=== PATIENT | male | born 1960 | race Caucasian/White ===

== ENCOUNTER 2025-03-27 22:11 | Observation (INO) ==
[2025-03-27 22:54] LABS: Hematocrit (blood only) 39.1 % (42.0-52.0); Hemoglobin 13.5 g/dl (14.0-18.0); Immature Granulocytes # (auto) 0.03 K/uL (0.01-0.20); Immature Granulocytes % (auto) 0.3 %; Mean Corpuscular Hemoglobin 29.9 pg (25.0-34.0); Mean Corpuscular Volume 86.7 fL (80.0-100.0); Platelet Count 229 K/uL (130-400); RDW Standard Deviation 40.6 fL (36.4-46.3); Red Blood Count 4.51 M/uL (4.70-6.10); White Blood Count 9.71 K/ul (4.8-10.8)
--- NOTE | 2025-03-27 22:55 | Emergency Department Note ---
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 The patient had apparently become severely weak and laid himself to the ground and denies any falls. She was able to help him to his feet and they sat in his car for a bit to warm up but due to his ongoing illness EMS was called. Patient denies any cough or congestion. He denies urinary symptoms. 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 He only began to feel ill towards the end of the day. On evaluation the patient is no acute distress, hypothermic to 35.3 on rectal temperature. Otherwise vital signs are stable. The patient appears clinically dry. Given the patient's significant hypothermia evaluation for sepsis initiated. Blood cultures were obtained. Empiric treatment initiated with IV ceftriaxone. 30 cc/KG per IBW with 3 L of normal saline administered. Warming blanket applied and IV fluid hydration administered via warmer for hypokalemia. Core temperature gradually improving. EKG without overt acute ischemia. CXR with increased density of the left lung base per my personal preliminary review/interpretation. WBC and platelets within normal limits. H/H 13.5/39.1 similar to prior. Chemistry without metabolic acidosis. Lactic acid 2.0, within normal limits. LFTs unremarkable. High-sensitivity troponin 4.2, within normal limits. Lipase is normal. Procalcitonin is undetectable. TSH within normal limits. UA with 2+ ketones but no convincing evidence of infection. Respiratory [employer] ultimately did result positive for enterovirus/rhinovirus. CT of the head, CTA chest and CT abdomen pelvis were obtained with reports pending. [facility] the patient for [facility]. Further management per admitting team. Triage Nursing notes reviewed and agree them. Prior/external medical records reviewed Vital Signs: reviewed Differential diagnosis: Infection, dehydration, metabolic abnormality, hypo/hyperglycemia, electrolyte disturbance, anemia, hypoxia, cardiac sources, intracerebral event, toxicologic, neurologic, as well as other pathologies. ER treatment provided: See below. Diagnostics interpreted by me: ECG: Sinus bradycardia, 58 bpm, no ectopy, LVH, no overt ST elevation or depression, QTc 431, QRS 104. Cardiac Monitoring: An order for continuous cardiac monitoring was placed and demonstrated sinus bradycardia, 58 bpm, no ectopy. Laboratory studies: See below Imaging studies: See below Consultation(s): Case was [facility] the patient for admission. HPI: Per MDM. ROS: See above HPI for pertinent positives & negatives. A total of 10 systems reviewed and were otherwise negative. VITALS:See Below PHYSICAL EXAMINATION: GENERAL: Awake, alert, ill-appearing, in no distress HENT: Normocephalic, atraumatic. Oropharynx with dry mucous membranes and otherwise unremarkable. EYES: Normal conjunctiva. Sclera non-icteric. EOMI. No nystamgus. PEARRL. NECK: Supple. No nuchal rigidity. FROM. No JVD. RESPIRATORY: Clear to auscultation. CARDIAC: Regular rate, normal rhythm. Extremities warm and well perfused. Pulses equal. ABDOMEN: Soft, non-distended. No tenderness to palpation. No rebound or guarding. No masses. MUSCULOSKELETAL: Chest examination reveals no tenderness. The back is symmetrical on inspection without obvious abnormality. There is no CVA tenderness to palpation. No joint edema. LOWER EXTREMITIES: Calves are equal size bilaterally and non-tender. No edema. No discoloration. NEURO: Cranial nerves II-XII grossly intact. 5/5 strength and SILT x 4 extremities. SKIN: No rash or jaundice noted. ED COURSE: Critical Care: I have personally spent greater than 35 minutes of critical care time in the direct management of this patient. This includes bedside care, interpretation of diagnostic studies, and testing, discussion with consultants, patient, and family members, and other required patient management activities. This 35 minutes is in excess of all separately billable procedures. Matthew Anthony MD Past Med/Surg History Problem List (Updated 03/28/25 @ 05:36 by Matthew Anthony MD) Generalized weakness (Acute) Dehydration (Acute) Rhinovirus infection (Acute) Hypothermia (Acute) Acid reflux Nausea Dysphagia Cervical spondylosis Cervical radicular pain Cervical pain Medical History On apixaban therapy Occlusion of radial artery Family History Denies family history of Crohn's disease Colorectal cancer Ulcerative colitis Social History Smoking Status: Never smoker Hx Alcohol Use: Yes Hx Substance Use: No Preferred Language: Italian Communication Ability: Effective Hearing Ability: Normal Cooker Syrup Required: No Beliefs That Will Affect Care: None Current Living Situation: Alone Other Information That Helps Us Care for You: No Feels Safe at Home: Yes Safety Concerns: Feels Safe At This Time Assistive Devices: Glasses and Hearing Aid - Bilateral Allergies Allergies Allergy/AdvReac Type Severity Reaction Status Date / Time codeine Allergy Severe Unknown Verified 03/28/25 02:55 Home Meds Home Medications Medication Instructions Recorded Confirmed acetaminophen 325 mg tablet 325 mg PO DAILY PRN Pain 12/26/24 03/28/25 omega-3 fatty acids 1,000 mg 2,000 mg PO DAILY 12/26/24 03/28/25 capsule dextroamphetamine-amphetamine 20 20 mg PO BID PRN as needed 01/09/25 03/28/25 mg tablet semaglutide (weight loss) 1.7 1.7 mg subcut Q7D 03/28/25 03/28/25 mg/0.75 mL subcutaneous pen injector (Wegovy) Results & Data (ED) Vital Signs Vital Signs - 24 hr 03/27/25 22:19 03/27/25 22:19 03/27/25 22:19 Temperature 35.3 C L Temperature Source Rectal Pulse Rate 58 L 58 L Pulse Rate [Apical] 58 L Pulse Rate from SpO2 Sensor Respiratory Rate 16 16 16 Respiratory Effort / Characteristics Non-Labored Spontaneous Non-Labored Spontaneous Blood Pressure 136/76 Blood Pressure Mean 96 Pulse Oximetry 98 98 98 Oxygen Delivery Method Room Air Room Air Room Air Sepsis Recent Fever Within 48 Hours No Sepsis New/Unexplained Change in Mental Status No Sepsis Action Taken by Nursing No Action Required 03/27/25 22:19 03/27/25 22:55 03/27/25 23:00 Temperature 35.3 C L Temperature Source Rectal Pulse Rate Pulse Rate [Apical] Pulse Rate from SpO2 Sensor Respiratory Rate Respiratory Effort / Characteristics Blood Pressure Blood Pressure Mean Pulse Oximetry 98 98 Oxygen Delivery Method Room Air Room Air Sepsis Recent Fever Within 48 Hours Sepsis New/Unexplained Change in Mental Status Sepsis Action Taken by Nursing 03/27/25 23:27 03/27/25 23:45 03/27/25 23:48 Temperature Temperature Source Pulse Rate 60 59 L 55 L Pulse Rate [Apical] Pulse Rate from SpO2 Sensor 60 57 L Respiratory Rate 13 Respiratory Effort / Characteristics Blood Pressure Blood Pressure Mean Pulse Oximetry 95 100 Oxygen Delivery Method Room Air Room Air Sepsis Recent Fever Within 48 Hours Sepsis New/Unexplained Change in Mental Status Sepsis Action Taken by Nursing 03/28/25 00:14 03/28/25 00:21 03/28/25 00:30 Temperature 35.6 C L Temperature Source Rectal Pulse Rate 61 59 L Pulse Rate [Apical] Pulse Rate from SpO2 Sensor 61 59 L Respiratory Rate 16 16 Respiratory Effort / Characteristics Blood Pressure 121/65 Blood Pressure Mean 83 Pulse Oximetry 96 100 Oxygen Delivery Method Room Air Room Air Sepsis Recent Fever Within 48 Hours Sepsis New/Unexplained Change in Mental Status Sepsis Action Taken by Nursing 03/28/25 00:47 03/28/25 01:33 03/28/25 01:50 Temperature 35.3 C L 35.9 C L Temperature Source Rectal Rectal Pulse Rate 63 Pulse Rate [Apical] Pulse Rate from SpO2 Sensor 63 Respiratory Rate 21 Respiratory Effort / Characteristics Blood Pressure 126/56 L Blood Pressure Mean 79 Pulse Oximetry 97 Oxygen Delivery Method Room Air Sepsis Recent Fever Within 48 Hours Sepsis New/Unexplained Change in Mental Status Sepsis Action Taken by Nursing 03/28/25 02:00 Temperature Temperature Source Pulse Rate 72 Pulse Rate [Apical] Pulse Rate from SpO2 Sensor 71 Respiratory Rate 19 Respiratory Effort / Characteristics Blood Pressure 122/62 Blood Pressure Mean 82 Pulse Oximetry 96 Oxygen Delivery Method Room Air Sepsis Recent Fever Within 48 Hours Sepsis New/Unexplained Change in Mental Status Sepsis Action Taken by Nursing Laboratory Data Attestation: I reviewed the patient's lab results. 03/27/25 22:18 10/20/25 22:18 Lab Results 03/27/25 03/27/25 03/27/25 Range/Units 22:18 23:21 23:39 WBC 9.71 (4.8-10.8) K/ul RBC 4.51 L (4.70-6.10) M/uL Hgb 13.5 L (14.0-18.0) g/dl Hct 39.1 L (42.0-52.0) % MCV 86.7 (80.0-100.0) fL MCH 29.9 (25.0-34.0) pg MCHC 34.5 (32.0-36.0) g/dL RDW Std Deviation 40.6 (36.4-46.3) fL RDW Coeff of Reginald 12.9 (11.5-14.5) % Plt Count 229 (130-400) K/uL MPV 10.6 (9.4-12.4) fL Immature Gran % (Auto) 0.3 % Neut % (Auto) 78.0 % Lymph % (Auto) 15.2 % Mckinley % (Auto) 6.0 % Eos % (Auto) 0.3 % Baso % (Auto) 0.2 % Neut # (Auto) 7.57 H (1.40-6.50) K/uL Lymph # (Auto) 1.48 (1.20-3.40) K/uL Mckinley # (Auto) 0.58 (0.11-0.59) K/uL Eos # (Auto) 0.03 (0.00-0.50) K/uL Baso # (Auto) 0.02 (0.00-0.20) K/uL Immature Gran # (Auto) 0.03 (0.01-0.20) K/uL Sodium 134 L (136-145) mmol/L Potassium 3.6 (3.5-5.1) mmol/L Chloride 99 (98-107) mmol/L Carbon Dioxide 26 (21-32) mmol/L Anion Gap 9 (3-11) BUN 16 (6-23) mg/dl Creatinine 1.05 (0.6-1.4) mg/dl Est Cr Clr Drug Dosing 96.2 ml/min eGFR 79.27 BUN/Creatinine Ratio 15.2 (10-20) Glucose 128 H (70-99(Fasting)) mg/dl Lactate (0.4-2.0) mmol/L Calcium 9.0 (8.6-10.3) mg/dl Magnesium 2.1 (1.7-2.4) mg/dl Total Bilirubin 0.6 (0.2-1.0) mg/dl Direct Bilirubin TNP AST 32 (13-39) U/L ALT 25 (7-52) U/L Alkaline Phosphatase 59 (34-104) U/L Troponin I High Sens 4.2 (0-20) pg/ml Total Protein 7.4 (6.0-8.3) gm/dl Albumin 4.0 (3.4-5.0) gm/dl Lipase 17 (11-82) U/L Procalcitonin < 0.02 (0-0.5) ng/ml TSH (0.300-4.500) uIu/ml Random Cortisol mcg/dl Urine Color Urine Appearance (Clear) Urine pH (4.5-7.5) Ur Specific Wheatcroft (1.000-1.030) Urine Protein (Negative) Urine Glucose (UA) (Negative) Urine Ketones (Negative) Urine Blood (Negative) Urine Nitrite (Negative) Urine Bilirubin (Negative) Urine Urobilinogen (Negative) Ur Leukocyte Esterase (Negative) Urine Comment Nasal Screen MRSA (PCR) Negative (Negative) Adenovirus (PCR) Not Detected (NotDetected) B. pertussis DNA (PCR) Not Detected (NotDetected) B.parapertussis DNA PCR Not Detected (NotDetected) Lyme Disease Screen Negative (Negative) C. pneumoniae DNA (PCR) Not Detected (NotDetected) Coronavirus OC43 (PCR) Not Detected (NotDetected) Coronavirus HKU1 (PCR) Not Detected (NotDetected) Coronavirus 229E (PCR) Not Detected (NotDetected) SARS-CoV-2 (PCR) Not Detected (NotDetected) Coronavirus NL63 (PCR) Not Detected (NotDetected) Human Metapneumovir PCR Not Detected (NotDetected) Influenza Type A (PCR) Not Detected (NotDetected) Influenza Type B (PCR) Not Detected (NotDetected) M. pneumoniae (PCR) Not Detected (NotDetected) Parainfluenza 1 (PCR) Not Detected (NotDetected) Parainfluenza 2 (PCR) Not Detected (NotDetected) Parainfluenza 3 (PCR) Not Detected (NotDetected) Parainfluenza 4 (PCR) Not Detected (NotDetected) RSV (PCR) Not Detected (NotDetected) Entero/Rhino (PCR) DETECTED A (NotDetected) 03/27/25 03/28/25 Range/Units 23:41 00:08 WBC (4.8-10.8) K/ul RBC (4.70-6.10) M/uL Hgb (14.0-18.0) g/dl Hct (42.0-52.0) % MCV (80.0-100.0) fL MCH (25.0-34.0) pg MCHC (32.0-36.0) g/dL RDW Std Deviation (36.4-46.3) fL RDW Coeff of Reginald (11.5-14.5) % Plt Count (130-400) K/uL MPV (9.4-12.4) fL Immature Gran % (Auto) % Neut % (Auto) % Lymph % (Auto) % Mckinley % (Auto) % Eos % (Auto) % Baso % (Auto) % Neut # (Auto) (1.40-6.50) K/uL Lymph # (Auto) (1.20-3.40) K/uL Mckinley # (Auto) (0.11-0.59) K/uL Eos # (Auto) (0.00-0.50) K/uL Baso # (Auto) (0.00-0.20) K/uL Immature Gran # (Auto) (0.01-0.20) K/uL Sodium (136-145) mmol/L Potassium (3.5-5.1) mmol/L Chloride (98-107) mmol/L Carbon Dioxide (21-32) mmol/L Anion Gap (3-11) BUN (6-23) mg/dl Creatinine (0.6-1.4) mg/dl Est Cr Clr Drug Dosing ml/min eGFR BUN/Creatinine Ratio (10-20) Glucose (70-99(Fasting)) mg/dl Lactate 2.0 (0.4-2.0) mmol/L Calcium (8.6-10.3) mg/dl Magnesium (1.7-2.4) mg/dl Total Bilirubin (0.2-1.0) mg/dl Direct Bilirubin 0.1 AST (13-39) U/L ALT (7-52) U/L Alkaline Phosphatase (34-104) U/L Troponin I High Sens (0-20) pg/ml Total Protein (6.0-8.3) gm/dl Albumin (3.4-5.0) gm/dl Lipase (11-82) U/L Procalcitonin (0-0.5) ng/ml TSH 2.868 (0.300-4.500) uIu/ml Random Cortisol 23.17 mcg/dl Urine Color Yellow Urine Appearance Clear (Clear) Urine pH 7.0 (4.5-7.5) Ur Specific Wheatcroft 1.020 (1.000-1.030) Urine Protein Negative (Negative) Urine Glucose (UA) Negative (Negative) Urine Ketones 2+ H (Negative) Urine Blood Negative (Negative) Urine Nitrite Negative (Negative) Urine Bilirubin Negative (Negative) Urine Urobilinogen Negative (Negative) Ur Leukocyte Esterase Negative (Negative) Urine Comment Nasal Screen MRSA (PCR) (Negative) Adenovirus (PCR) (NotDetected) B. pertussis DNA (PCR) (NotDetected) B.parapertussis DNA PCR (NotDetected) Lyme Disease Screen (Negative) C. pneumoniae DNA (PCR) (NotDetected) Coronavirus OC43 (PCR) (NotDetected) Coronavirus HKU1 (PCR) (NotDetected) Coronavirus 229E (PCR) (NotDetected) SARS-CoV-2 (PCR) (NotDetected) Coronavirus NL63 (PCR) (NotDetected) Human Metapneumovir PCR (NotDetected) Influenza Type A (PCR) (NotDetected) Influenza Type B (PCR) (NotDetected) M. pneumoniae (PCR) (NotDetected) Parainfluenza 1 (PCR) (NotDetected) Parainfluenza 2 (PCR) (NotDetected) Parainfluenza 3 (PCR) (NotDetected) Parainfluenza 4 (PCR) (NotDetected) RSV (PCR) (NotDetected) Entero/Rhino (PCR) (NotDetected) Administered Medications Potassium Chloride/Sodium Chloride (Normal Saline W/20 Meq Kcl) 20 meq in 1,000 mls @ 100 mls/hr IV .Q10H ONE Stop: 03/28/25 12:46 Last Admin: 03/28/25 03:43 Dose: 100 mls/hr Documented By: LEONA Discontinued Medications Ceftriaxone Sodium (Rocephin) 2,000 mg in 50 mls @ 100 mls/hr IV NOW STA Stop: 03/27/25 23:02 Last Infusion: 03/28/25 01:47 Dose: Infused Documented By: Admin: 03/28/25 00:24 Dose: 100 mls/hr Documented By: TERRIE Famotidine (Pepcid 20mg Iv Push) 20 mg in 5 mls @ 2.5 mls/min IV NOW STA Stop: 03/27/25 22:57 Last Admin: 03/27/25 23:25 Dose: 2.5 mls/min Documented By: TERRIE Acetaminophen (Ofirmev) 1,000 mg in 100 mls @ 400 mls/hr IV NOW STA Stop: 03/27/25 23:10 Last Infusion: 03/28/25 00:05 Dose: Infused Documented By: Admin: 03/27/25 23:28 Dose: 400 mls/hr Documented By: TERRIE Sodium Chloride (Nss) 1,000 mls @ 999 mls/hr IV .Q1H1M ARTEMIO Stop: 03/28/25 01:00 Last Infusion: 03/28/25 01:47 Dose: Infused Documented By: Admin: 03/28/25 00:25 Dose: 999 mls/hr Documented By: Infusion: 03/28/25 00:23 Dose: Infused Documented By: Admin: 03/27/25 23:21 Dose: 999 mls/hr Documented By: TERRIE Sodium Chloride (Nss) 1,000 mls @ 999 mls/hr IV .Q1H1M ONE Stop: 03/27/25 23:57 Last Infusion: 03/28/25 00:23 Dose: Infused Documented By: Admin: 03/27/25 23:21 Dose: 999 mls/hr Documented By: TERRIE Ioversol (Optiray 320 125ml) 118 ml IV ONCE ONE Stop: 03/28/25 01:09 Last Admin: 03/28/25 01:11 Dose: 118 ml Documented By: DANIEL Ondansetron HCl (Ondansetron Inj 2 Mg/Ml 2 Ml Vial) 4 mg IV NOW STA Stop: 03/27/25 22:57 Last Admin: 03/27/25 23:22 Dose: 4 mg Documented By: TERRIE Imaging Data Radiologist's Impression: Chest X-Ray 03/27/25 22:31 Exam(s): XR CXR 1 VIEW EXAM: XR Chest, 1 View CLINICAL HISTORY: Reason for exam: Sepsis. TECHNIQUE: Frontal view of the chest. COMPARISON: 10/23/2024 FINDINGS: Lungs: Compared to prior, increased density of the left lung base. Right lung is clear. Pleural space: No significant pleural effusion. No pneumothorax. Heart: No cardiomegaly or pulmonary vascular congestion. Bones/joints: No acute fracture. No dislocation. IMPRESSION: Compared to prior, increased density of the left lung base. Appearance is favored atelectasis, but infiltrate is not excluded. Electronically signed by: Tony River M.D. 03/27/25 23:35 PM Abdomen/Pelvis CT 03/27/25 22:54 EXAM: CT abd pelvis IV con only CLINICAL HISTORY: nausea, hypothermic TECHNIQUE: Contrast-enhanced CT of the abdomen and pelvis was performed, with the following protocol: axial images were obtained, and coronal and sagittal reconstructions were performed. 118 mL of Optiray 320 Intravenous contrast was administered. One of the following dose reduction techniques was utilized for this exam: automated exposure control, adjustment of the mA and/or kV according to patient size, and use of iterative reconstruction. COMPARISON: None. FINDINGS: Abdomen: Liver: The liver is normal in size, shape, and density. No focal lesions, cysts, or masses are identified. The hepatic vasculature and biliary ducts are unremarkable. Gallbladder and Biliary System: The gallbladder is normal in size and shape. No wall thickening, pericholecystic fluid, or gallstones are identified. The common bile duct is normal in caliber without dilation. Pancreas: The pancreatic head, body, and tail are visualized and appear normal in size and density. No pancreatic masses or calcifications are noted. The pancreatic duct is not dilated. Spleen: The spleen is normal in size, shape, and density. No splenic lesions or masses are identified. Appendix: The appendix is normal in size without simón-appendiceal fat stranding, and without an appendicolith. No evidence of appendiceal abscess or perforation. Kidneys and Adrenal Glands: Both kidneys are normal in size, shape, and position. Cortical thickness is within normal limits. No sizable renal calculi or hydronephrosis are identified. A 4mm cortical cyst in the interpolar region of right kidney. The adrenal glands are unremarkable, with no evidence of masses or hyperplasia. Pelvis: Urinary Bladder: The urinary bladder is normal in contour and wall thickness. No intraluminal lesions are identified. Prostate: The prostate is enlarged (93 cc). Seminal Vesicles: The seminal vesicles are normal in size and appearance. No abnormalities are noted. Peritoneal and Retroperitoneal Structures: No free fluid or abnormal fluid collections are identified within the abdomen or pelvis. No lymphadenopathy is noted. Mild atheromatous calcification of the examined vessels is present. Bowel: Mild diverticulosis of the colon is present. The visualized bowel loops are normal in caliber and appearance. No evidence of bowel obstruction or wall thickening is seen. Bones and Soft Tissues: Bilateral hip osteoarthritis is present. Spondylodegenerative changes of the lumbosacral spine are noted. No fractures or abnormal masses are identified. Proximal hamstring calcific tendinosis is present bilaterally. Basal chest cuts show mild dependent atelectasis. IMPRESSION: 1. Contrast-enhanced CT of the abdomen and pelvis demonstrates no acute intra-abdominal pathology. 2. Prostatomegaly. Electronically signed by Moses Mack 03-28-2025 02:29 AM Chest CTA 03/27/25 22:54 EXAM: CT angio chest PE protocol CLINICAL HISTORY: Chest pain, nausea, hypothermic, r/o PE TECHNIQUE: CT angiography of the chest was performed with and without intravenous contrast using the following protocol: Axial images were acquired and reconstructed to coronal and sagittal images. Non-contrast images were initially obtained, followed by contrast-enhanced images in arterial and venous phases. Intravenous contrast [name and volume] was administered using automated injection techniques. Bolus tracking was employed to optimize arterial phase imaging. One of the following 3D techniques was utilized: Maximum Intensity Pixel (MIP), 3D reconstructed images, volume rendered images, or surface shaded rendering. One of the following dose reduction techniques was utilized for this exam: automated exposure control, adjustment of the mA and/or kV according to patient size, and use of iterative reconstruction. COMPARISON: Comparison is made with 12/26/2024. FINDINGS: Aorta and Great Vessels: Ascending aorta: The ascending aorta is normal in caliber, with no aneurysm, dissection, or significant atherosclerosis. Aortic arch: The aortic arch is normal in caliber, with no aneurysm, dissection, or significant atherosclerosis. Descending aorta: The descending aorta is normal in caliber, with no aneurysm, dissection, or significant atherosclerosis. Pulmonary arteries: The main pulmonary artery and its branches are patent. There is no evidence of pulmonary embolism or significant stenosis. Heart: Cardiac chambers: The cardiac chambers are normal in size. There is no evidence of cardiomegaly. Pericardium: There is no pericardial effusion or thickening. Lungs and Pleura: The lungs are clear, without evidence of consolidation, collapse, or focal lesions. There is interval resolution of the prior diffuse ground-glass attenuation of the lung gil, now localized to the basal lungs only, which may currently represent the effect of gravity and circulation. There is no pleural effusion or pleural thickening. Mediastinum: There is no mediastinal mass or abnormal lymphadenopathy. The trachea and central bronchi have a normal appearance. Hilar Structures: The hilar structures are normal, without enlargement. Old, calcified left hilar lymph nodes are seen and are interval stable. A few calcified lymph nodes are noted in the subcarinal region and are interval stable. Chest Wall: There are no mass lesions or abnormalities in the chest wall. Vascular Structures: Superior vena cava: The superior vena cava is patent without evidence of stenosis or thrombus. Bones and Soft Tissues: Degenerative changes are seen in the spine. There are no fractures, lytic, or blastic lesions of the visualized bony structures. The soft tissues are unremarkable. The stomach is distended with food and fluid residual. An old splenic calcified granuloma is redemonstrated and is interval stable. IMPRESSION: 1. Normal CT angiogram of the chest shows no evidence of any acute or chronic thromboembolic phenomenon in the pulmonary vasculature. 2. No arterial dissection or aneurysms are noted. 3. The stomach is distended with food and fluid residual. 4. Interval resolution of the prior diffuse ground-glass attenuation of the lung gil, now localized to the basal lungs only, which may currently represent the effect of gravity and circulation. 5. Clinical correlation is advised. Electronically signed by Moses Mack 03-28-2025 02:[address] 03/27/25 22:54 EXAM: CT head/brain wo con CLINICAL HISTORY: dizziness, hypothermic, nausea TECHNIQUE: Axial non-contrast CT scan of the brain was performed from the skull base to the high parietal region. One of the following dose reduction techniques was utilized for this examination: automated exposure control, adjustment of the mA and/or kV according to patient size, or use of iterative reconstruction. COMPARISON: 10/27/2022 FINDINGS: Brain Parenchyma: Normal attenuation of the cerebral hemispheres, cerebellum, and brainstem. There is no evidence of acute infarct, hemorrhage, or mass effect. There are no abnormal areas of hypoattenuation or hyperattenuation. Ventricular System: The ventricles are normal in size and configuration. There is no evidence of hydrocephalus or ventricular enlargement. Subarachnoid Spaces: The sulci and cisterns are normal. There is no evidence of subarachnoid hemorrhage or extra-axial fluid collections. Cerebellum and Brainstem: No masses, lesions, or areas of abnormal density are identified. Orbits: The globes, optic nerves, and extraocular muscles demonstrate normal appearance. There is no evidence of orbital masses or abnormal density. Sinuses: The paranasal sinuses are clear. There is no evidence of sinusitis or mucosal thickening. Mastoid Air Cells: The mastoid air cells are clear. There is no evidence of mastoiditis. Skull: The skull demonstrates normal morphology. IMPRESSION: There is no evidence of established infarction, intracranial or extracranial hemorrhage. Early changes of stroke may not be detected on a CT scan. If there is strong clinical suspicion for stroke, MRI with diffusion-weighted imaging is suggested. There are no significant interval changes from the previous study. Electronically signed by Moses Mack 03-28-2025 02:37 AM Discharge Plan Visit Data Chief Complaint: Weakness Stated Complaint: WEAKNESS, CHEST PAIN, SOB ED Provider: Matthew Anthony Discharge Problem: Hypothermia, Rhinovirus infection, Dehydration, Generalized weakness Patient Disposition: Admitted As Inpatient Condition: Serious Discharge Instructions Interventions: ED Discharge Assessment Last Done: 03/28/25 02:49 Discharge Problem: Hypothermia Qualifiers: Encounter type: initial encounter Qualified Code(s): T68.XXXA - Hypothermia, initial encounter
[2025-03-27] MEDS: SODIUM CHLORIDE 0.9% 1,000 ML IV ONE (23:21)
[2025-03-27] MEDS: SODIUM CHLORIDE 0.9% 1,000 ML IV SCH (23:21)
[2025-03-27] MEDS: ONDANSETRON INJ 2 MG/ML 2 ML VIAL IV STA (23:22)
[2025-03-27] MEDS: FAMOTIDINE 20MG IV PUSH 20 MG/5 ML SYR IV STA (23:25)
[2025-03-27] MEDS: ACETAMINOPHEN 1,000 MG/100 ML VIAL IV STA (23:28)
[2025-03-27 23:34] LABS: Alanine Aminotransferase 25 U/L (7-52); Albumin Level 4.0 gm/dl (3.4-5.0); Alkaline Phosphatase 59 U/L (34-104); Anion Gap 9 (3-11); Bilirubin,Total 0.6 mg/dl (0.2-1.0); Blood Urea Nitrogen 16 mg/dl (6-23); Calcium 9.0 mg/dl (8.6-10.3); Carbon Dioxide 26 mmol/L (21-32); Chloride 99 mmol/L (98-107); Creatinine Clr Calc Pharmacy 96.2 ml/min; Glucose 128 mg/dl (70-99(Fasting)); Lipase 17 U/L (11-82); Magnesium 2.1 mg/dl (1.7-2.4); Potassium 3.6 mmol/L (3.5-5.1); Sodium 134 mmol/L (136-145); Total Protein 7.4 gm/dl (6.0-8.3)
--- NOTE | 2025-03-27 23:36 | XRay Report ---
Exam(s): XR CXR 1 VIEW EXAM: XR Chest, 1 View CLINICAL HISTORY: Reason for exam: Sepsis. TECHNIQUE: Frontal view of the chest. COMPARISON: 10/23/2024 FINDINGS: Lungs: Compared to prior, increased density of the left lung base. Right lung is clear. Pleural space: No significant pleural effusion. No pneumothorax. Heart: No cardiomegaly or pulmonary vascular congestion. Bones/joints: No acute fracture. No dislocation. IMPRESSION: Compared to prior, increased density of the left lung base. Appearance is favored atelectasis, but infiltrate is not excluded. Electronically signed by: Tony River M.D. 03/27/25 23:35 PM
[2025-03-28 00:12] LABS: Appearance Urine Clear (Clear); Glucose Urine UA Negative (Negative)
[2025-03-28] MEDS: cefTRIAXone SODIUM 2,000 MG/50 ML BAG IV STA (00:24)
[2025-03-28 00:36] LABS: Chlamydia pneumoniae PCR Not Detected (NotDetected); Coronavirus 229E PCR Not Detected (NotDetected); Coronavirus CoV-2 (COVID19)PCR Not Detected (NotDetected); Coronavirus HKU1 PCR Not Detected (NotDetected); Coronavirus NL63 PCR Not Detected (NotDetected); Coronavirus OC43PCR Not Detected (NotDetected); Human Metapneumovirus PCR Not Detected (NotDetected); Parainfluenza Virus 1 PCR Not Detected (NotDetected); Parainfluenza Virus 2 PCR Not Detected (NotDetected); Parainfluenza Virus 3 PCR Not Detected (NotDetected); Parainfluenza Virus 4 PCR Not Detected (NotDetected); Respiratory Syncytial VirusPCR Not Detected (NotDetected); Rhinovirus/Enterovirus PCR DETECTED (NotDetected)
[2025-03-28] MEDS: OPTIRAY 320 125ml IV ONE (01:11)
[2025-03-28 01:31] LABS: Thyroid Stimulating Hormone 2.868 uIu/ml (0.300-4.500)
--- NOTE | 2025-03-28 02:11 | History & Physical Report ---
Date of Service March 28, 2025 Assessment & Plan (1) SOB (shortness of breath): Plan: Assessment and plan below following discussion of case with ED provider and reviewing patient history/pertinent normal/abnormal diagnostic test results. SOB secondary to viral bronchitis Entero/rhinovirus positive Hypothermia secondary to viral illness Chronic anemia, hx MGUS, hemoglobin at baseline ADHD, on as needed medication mood disorder, not on maintenance medications Hyperglycemia rule out DM past tobacco abuse OBS Admit to med/tele Supportive management for viral illness Continue Valente hugger until temperature greater than 36 C Check hemoglobin A1c PT eval DVT prophylaxis. Lovenox subcu Full code Text document was generated using orderbolt voice recognition software. It may contain grammatical or spelling errors. Kindly contact undersigned for clarification of any documentation item in question. History of Present Illness Chief Complaint: SOB, weakness Primary Care Provider: [facility] PCP : PRASANNA Alvarez PCP : Dr. Mayorga History obtained from patient and records. Medical history significant for chronic anemia (baseline hemoglobin of 13), MGUS, ADHD, mood disorder, past tobacco abuse. Patient felt sick after a day of work yesterday. Cough symptoms productive of clear sputum. 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 Transient chest pain, SOB associated with nausea, emesis, dizziness symptoms. Generalized weakness. No syncope. Patient markedly hypothermic upon arrival at the ER. Medical History as above Surgical History : Back surgery Family History : Lung cancer, heart disease, stroke Personal/Social history : Past tobacco abuse, occasional EtOH intake, chiropractor Allergies Allergy/AdvReac Type Severity Reaction Status Date / Time codeine Allergy Severe Unknown Verified 03/28/25 02:55 Home Medications Medication Instructions Recorded Confirmed Type acetaminophen 325 mg tablet 325 mg PO DAILY PRN Pain 12/26/24 03/28/25 History omega-3 fatty acids 1,000 mg 2,000 mg PO DAILY 12/26/24 03/28/25 History capsule dextroamphetamine-amphetamine 20 20 mg PO BID PRN as needed 01/09/25 03/28/25 History mg tablet semaglutide (weight loss) 1.7 1.7 mg subcut Q7D 03/28/25 03/28/25 History mg/0.75 mL subcutaneous pen injector (Carol) Past Med/Surg History Problem List (Updated 03/28/25 @ 08:09 by Renny Kellogg MD) SOB (shortness of breath) Generalized weakness (Acute) Dehydration (Acute) Rhinovirus infection (Acute) Hypothermia (Acute) Acid reflux Nausea Dysphagia Cervical spondylosis Cervical radicular pain Cervical pain Medical History On apixaban therapy Occlusion of radial artery Family History Denies family history of Crohn's disease Colorectal cancer Ulcerative colitis Social History Smoking Status: Never smoker Hx Alcohol Use: Yes Hx Substance Use: No Preferred Language: Romansh Communication Ability: Effective Hearing Ability: Normal Kindergarten Assistant Required: No Beliefs That Will Affect Care: None Current Living Situation: Alone Other Information That Helps Us Care for You: No Feels Safe at Home: Yes Safety Concerns: Feels Safe At This Time Assistive Devices: Glasses and Hearing Aid - Bilateral Review of Systems Review of Systems: As per HPI, all other systems reviewed and negative Physical Exam Physical Exam: GENERAL: Comfortable, obese, pleasant, no respiratory distress, lying on the left lateral decubitus position SKIN: Normal color, cool HEENT: [place] palpebral conjunctivae, no ptosis, dry buccal mucosa NECK : Supple, no tenderness CHEST : Decreased breath sounds, no tenderness HEART : RRR, no obvious murmurs ABDOMEN: Some distention, nontender EXTREMITIES : No LE swelling/tenderness, palpable pulses, no other conspicuous deformities noted NEUROLOGIC : Coherent, no facial asymmetry, gait and stance not assessed Results & Data Results & Data Vital Signs (Past 12 Hours) Vital Signs Temp Pulse Pulse Resp BP Pulse Ox O2 Del Method 03/28/25 01:50 35.9 C L 03/28/25 01:33 63 21 126/56 L 97 Room Air 03/28/25 00:47 35.3 C L 03/28/25 00:30 59 L 16 121/65 100 Room Air 03/28/25 00:21 61 16 96 Room Air 03/28/25 00:14 35.6 C L 03/27/25 23:48 55 L 100 Room Air 03/27/25 23:45 59 L 03/27/25 23:27 60 13 95 Room Air 03/27/25 23:00 35.3 C L 03/27/25 22:55 98 Room Air 03/27/25 22:19 98 Room Air 03/27/25 22:19 58 L 16 98 Room Air 03/27/25 22:19 58 L 16 98 Room Air 03/27/25 22:19 35.3 C L 58 L 16 136/76 98 Room Air Laboratory Results Laboratory Results WBC 9.71 K/ul (4.8-10.8) 03/27/25 22:18 RBC 4.51 M/uL (4.70-6.10) L 03/27/25 22:18 Hgb 13.5 g/dl (14.0-18.0) L 03/27/25 22:18 Hct 39.1 % (42.0-52.0) L 03/27/25 22:18 MCV 86.7 fL (80.0-100.0) 03/27/25 22:18 MCH 29.9 pg (25.0-34.0) 03/27/25 22:18 MCHC 34.5 g/dL (32.0-36.0) 03/27/25 22:18 RDW Std Deviation 40.6 fL (36.4-46.3) 03/27/25 22:18 RDW Coeff of Reginald 12.9 % (11.5-14.5) 03/27/25 22:18 Plt Count 229 K/uL (130-400) 03/27/25 22:18 MPV 10.6 fL (9.4-12.4) 03/27/25 22:18 Immature Gran % (Auto) 0.3 % 03/27/25 22:18 Neut % (Auto) 78.0 % 03/27/25 22:18 Lymph % (Auto) 15.2 % 03/27/25 22:18 [place] % (Auto) 6.0 % 03/27/25 22:18 Eos % (Auto) 0.3 % 03/27/25 22:18 Baso % (Auto) 0.2 % 03/27/25 22:18 Neut # (Auto) 7.57 K/uL (1.40-6.50) H 03/27/25 22:18 Lymph # (Auto) 1.48 K/uL (1.20-3.40) 03/27/25 22:18 [place] # (Auto) 0.58 K/uL (0.11-0.59) 03/27/25 22:18 Eos # (Auto) 0.03 K/uL (0.00-0.50) 03/27/25 22:18 Baso # (Auto) 0.02 K/uL (0.00-0.20) 03/27/25 22:18 Immature Gran # (Auto) 0.03 K/uL (0.01-0.20) 03/27/25 22:18 Sodium 134 mmol/L (136-145) L 03/27/25 22:18 Potassium 3.6 mmol/L (3.5-5.1) 03/27/25 22:18 Chloride 99 mmol/L (98-107) 03/27/25 22:18 Carbon Dioxide 26 mmol/L (21-32) 03/27/25 22:18 Anion Gap 9 (3-11) 03/27/25 22:18 BUN 16 mg/dl (6-23) 03/27/25 22:18 Creatinine 1.05 mg/dl (0.6-1.4) 03/27/25 22:18 Est Cr Clr Drug Dosing 96.2 ml/min 03/27/25 22:18 eGFR 79.27 03/27/25 22:18 BUN/Creatinine Ratio 15.2 (10-20) 03/27/25 22:18 Glucose 128 mg/dl (70-99(Fasting)) H 03/27/25 22:18 Lactate 2.0 mmol/L (0.4-2.0) 03/28/25 00:08 Calcium 9.0 mg/dl (8.6-10.3) 03/27/25 22:18 Magnesium 2.1 mg/dl (1.7-2.4) 03/27/25 22:18 Total Bilirubin 0.6 mg/dl (0.2-1.0) 03/27/25 22:18 Direct Bilirubin 0.1 mg/dl (0-0.2) 03/28/25 00:08 AST 32 U/L (13-39) 03/27/25 22:18 ALT 25 U/L (7-52) 03/27/25 22:18 Alkaline Phosphatase 59 U/L (34-104) 03/27/25 22:18 Troponin I High Sens 4.2 pg/ml (0-20) 03/27/25 22:18 Total Protein 7.4 gm/dl (6.0-8.3) 03/27/25 22:18 Albumin 4.0 gm/dl (3.4-5.0) 03/27/25 22:18 Lipase 17 U/L (11-82) 03/27/25 22:18 Procalcitonin < 0.02 ng/ml (0-0.5) 03/27/25 22:18 TSH 2.868 uIu/ml (0.300-4.500) 03/28/25 00:08 Random Cortisol 23.17 mcg/dl 03/28/25 00:08 Urine Color Yellow 03/27/25 23:41 Urine Appearance Clear (Clear) 03/27/25 23:41 Urine pH 7.0 (4.5-7.5) 03/27/25 23:41 Ur Specific [place] 1.020 (1.000-1.030) 03/27/25 23:41 Urine Protein Negative (Negative) 03/27/25 23:41 Urine Glucose (UA) Negative (Negative) 03/27/25 23:41 Urine Ketones 2+ (Negative) H 03/27/25 23:41 Urine Blood Negative (Negative) 03/27/25 23:41 Urine Nitrite Negative (Negative) 03/27/25 23:41 Urine Bilirubin Negative (Negative) 03/27/25 23:41 Urine Urobilinogen Negative (Negative) 03/27/25 23:41 Ur Leukocyte Esterase Negative (Negative) 03/27/25 23:41 Urine Comment 03/27/25 23:41 Nasal Screen MRSA (PCR) Negative (Negative) 03/27/25 23:21 Adenovirus (PCR) Not Detected (NotDetected) 03/27/25 23:39 B. pertussis DNA (PCR) Not Detected (NotDetected) 03/27/25 23:39 B.parapertussis DNA PCR Not Detected (NotDetected) 03/27/25 23:39 C. pneumoniae DNA (PCR) Not Detected (NotDetected) 03/27/25 23:39 Coronavirus OC43 (PCR) Not Detected (NotDetected) 03/27/25 23:39 Coronavirus HKU1 (PCR) Not Detected (NotDetected) 03/27/25 23:39 Coronavirus 229E (PCR) Not Detected (NotDetected) 03/27/25 23:39 SARS-CoV-2 (PCR) Not Detected (NotDetected) 03/27/25 23:39 Coronavirus NL63 (PCR) Not Detected (NotDetected) 03/27/25 23:39 Human Metapneumovir PCR Not Detected (NotDetected) 03/27/25 23:39 Influenza Type A (PCR) Not Detected (NotDetected) 03/27/25 23:39 Influenza Type B (PCR) Not Detected (NotDetected) 03/27/25 23:39 M. pneumoniae (PCR) Not Detected (NotDetected) 03/27/25 23:39 Parainfluenza 1 (PCR) Not Detected (NotDetected) 03/27/25 23:39 Parainfluenza 2 (PCR) Not Detected (NotDetected) 03/27/25 23:39 Parainfluenza 3 (PCR) Not Detected (NotDetected) 03/27/25 23:39 Parainfluenza 4 (PCR) Not Detected (NotDetected) 03/27/25 23:39 RSV (PCR) Not Detected (NotDetected) 03/27/25 23:39 Entero/Rhino (PCR) DETECTED (NotDetected) A 03/27/25 23:39 Impressions Chest X-Ray 03/27/25 22:31 Exam(s): XR CXR 1 VIEW EXAM: XR Chest, 1 View CLINICAL HISTORY: Reason for exam: Sepsis. TECHNIQUE: Frontal view of the chest. COMPARISON: 10/23/2024 FINDINGS: Lungs: Compared to prior, increased density of the left lung base. Right lung is clear. Pleural space: No significant pleural effusion. No pneumothorax. Heart: No cardiomegaly or pulmonary vascular congestion. Bones/joints: No acute fracture. No dislocation. IMPRESSION: Compared to prior, increased density of the left lung base. Appearance is favored atelectasis, but infiltrate is not excluded. Electronically signed by: Tony River M.D. 03/27/25 23:[address] head: There is no evidence of established infarction, intracranial or extracranial hemorrhage. Early changes of stroke may not be detected on a CT scan. If there is strong clinical suspicion for stroke, MRI with diffusion-weighted imaging is suggested. There are no significant interval changes from the previous study. Chest CTA: 1. Normal CT angiogram of the chest shows no evidence of any acute or chronic thromboembolic phenomenon in the pulmonary vasculature. 2. No arterial dissection or aneurysms are noted. 3. The stomach is distended with food and fluid residual. 4. Interval resolution of the prior diffuse ground-glass attenuation of the lung gil, now localized to the basal lungs only, which may currently represent the effect of gravity and circulation. 5. Clinical correlation is advised. CT abdomen pelvis: 1. Contrast-enhanced CT of the abdomen and pelvis demonstrates no acute intra-abdominal pathology. 2. Prostatomegaly. Diagnostic Findings EKG could not be located at time of dictation.
--- NOTE | 2025-03-28 02:29 | CT Scan Report ---
EXAM: CT abd pelvis IV con only CLINICAL HISTORY: nausea, hypothermic TECHNIQUE: Contrast-enhanced CT of the abdomen and pelvis was performed, with the following protocol: axial images were obtained, and coronal and sagittal reconstructions were performed. 118 mL of Optiray 320 Intravenous contrast was administered. One of the following dose reduction techniques was utilized for this exam: automated exposure control, adjustment of the mA and/or kV according to patient size, and use of iterative reconstruction. COMPARISON: None. FINDINGS: Abdomen: Liver: The liver is normal in size, shape, and density. No focal lesions, cysts, or masses are identified. The hepatic vasculature and biliary ducts are unremarkable. Gallbladder and Biliary System: The gallbladder is normal in size and shape. No wall thickening, pericholecystic fluid, or gallstones are identified. The common bile duct is normal in caliber without dilation. Pancreas: The pancreatic head, body, and tail are visualized and appear normal in size and density. No pancreatic masses or calcifications are noted. The pancreatic duct is not dilated. Spleen: The spleen is normal in size, shape, and density. No splenic lesions or masses are identified. Appendix: The appendix is normal in size without simón-appendiceal fat stranding, and without an appendicolith. No evidence of appendiceal abscess or perforation. Kidneys and Adrenal Glands: Both kidneys are normal in size, shape, and position. Cortical thickness is within normal limits. No sizable renal calculi or hydronephrosis are identified. A 4mm cortical cyst in the interpolar region of right kidney. The adrenal glands are unremarkable, with no evidence of masses or hyperplasia. Pelvis: Urinary Bladder: The urinary bladder is normal in contour and wall thickness. No intraluminal lesions are identified. Prostate: The prostate is enlarged (93 cc). Seminal Vesicles: The seminal vesicles are normal in size and appearance. No abnormalities are noted. Peritoneal and Retroperitoneal Structures: No free fluid or abnormal fluid collections are identified within the abdomen or pelvis. No lymphadenopathy is noted. Mild atheromatous calcification of the examined vessels is present. Bowel: Mild diverticulosis of the colon is present. The visualized bowel loops are normal in caliber and appearance. No evidence of bowel obstruction or wall thickening is seen. Bones and Soft Tissues: Bilateral hip osteoarthritis is present. Spondylodegenerative changes of the lumbosacral spine are noted. No fractures or abnormal masses are identified. Proximal hamstring calcific tendinosis is present bilaterally. Basal chest cuts show mild dependent atelectasis. IMPRESSION: 1. Contrast-enhanced CT of the abdomen and pelvis demonstrates no acute intra-abdominal pathology. 2. Prostatomegaly. Electronically signed by Moses Mack 03-28-2025 02:29 AM
--- NOTE | 2025-03-28 02:38 | CT Scan Report ---
EXAM: CT head/brain wo con CLINICAL HISTORY: dizziness, hypothermic, nausea TECHNIQUE: Axial non-contrast CT scan of the brain was performed from the skull base to the high parietal region. One of the following dose reduction techniques was utilized for this examination: automated exposure control, adjustment of the mA and/or kV according to patient size, or use of iterative reconstruction. COMPARISON: 10/27/2022 FINDINGS: Brain Parenchyma: Normal attenuation of the cerebral hemispheres, cerebellum, and brainstem. There is no evidence of acute infarct, hemorrhage, or mass effect. There are no abnormal areas of hypoattenuation or hyperattenuation. Ventricular System: The ventricles are normal in size and configuration. There is no evidence of hydrocephalus or ventricular enlargement. Subarachnoid Spaces: The sulci and cisterns are normal. There is no evidence of subarachnoid hemorrhage or extra-axial fluid collections. Cerebellum and Brainstem: No masses, lesions, or areas of abnormal density are identified. Orbits: The globes, optic nerves, and extraocular muscles demonstrate normal appearance. There is no evidence of orbital masses or abnormal density. Sinuses: The paranasal sinuses are clear. There is no evidence of sinusitis or mucosal thickening. Mastoid Air Cells: The mastoid air cells are clear. There is no evidence of mastoiditis. Skull: The skull demonstrates normal morphology. IMPRESSION: There is no evidence of established infarction, intracranial or extracranial hemorrhage. Early changes of stroke may not be detected on a CT scan. If there is strong clinical suspicion for stroke, MRI with diffusion-weighted imaging is suggested. There are no significant interval changes from the previous study. Electronically signed by Moses Mack 03-28-2025 02:37 AM
[2025-03-28] MEDS ORDERED: ACETAMINOPHEN 325 MG TAB PO PRN (02:45)
[2025-03-28] MEDS ORDERED: PROMETHAZINE 6.25 MG/50.25 ML BAG IV PRN (02:45)
--- NOTE | 2025-03-28 02:46 | CT Scan Report ---
EXAM: CT angio chest PE protocol CLINICAL HISTORY: Chest pain, nausea, hypothermic, r/o PE TECHNIQUE: CT angiography of the chest was performed with and without intravenous contrast using the following protocol: Axial images were acquired and reconstructed to coronal and sagittal images. Non-contrast images were initially obtained, followed by contrast-enhanced images in arterial and venous phases. Intravenous contrast [name and volume] was administered using automated injection techniques. Bolus tracking was employed to optimize arterial phase imaging. One of the following 3D techniques was utilized: Maximum Intensity Pixel (MIP), 3D reconstructed images, volume rendered images, or surface shaded rendering. One of the following dose reduction techniques was utilized for this exam: automated exposure control, adjustment of the mA and/or kV according to patient size, and use of iterative reconstruction. COMPARISON: Comparison is made with 12/26/2024. FINDINGS: Aorta and Great Vessels: Ascending aorta: The ascending aorta is normal in caliber, with no aneurysm, dissection, or significant atherosclerosis. Aortic arch: The aortic arch is normal in caliber, with no aneurysm, dissection, or significant atherosclerosis. Descending aorta: The descending aorta is normal in caliber, with no aneurysm, dissection, or significant atherosclerosis. Pulmonary arteries: The main pulmonary artery and its branches are patent. There is no evidence of pulmonary embolism or significant stenosis. Heart: Cardiac chambers: The cardiac chambers are normal in size. There is no evidence of cardiomegaly. Pericardium: There is no pericardial effusion or thickening. Lungs and Pleura: The lungs are clear, without evidence of consolidation, collapse, or focal lesions. There is interval resolution of the prior diffuse ground-glass attenuation of the lung gil, now localized to the basal lungs only, which may currently represent the effect of gravity and circulation. There is no pleural effusion or pleural thickening. Mediastinum: There is no mediastinal mass or abnormal lymphadenopathy. The trachea and central bronchi have a normal appearance. Hilar Structures: The hilar structures are normal, without enlargement. Old, calcified left hilar lymph nodes are seen and are interval stable. A few calcified lymph nodes are noted in the subcarinal region and are interval stable. Chest Wall: There are no mass lesions or abnormalities in the chest wall. Vascular Structures: Superior vena cava: The superior vena cava is patent without evidence of stenosis or thrombus. Bones and Soft Tissues: Degenerative changes are seen in the spine. There are no fractures, lytic, or blastic lesions of the visualized bony structures. The soft tissues are unremarkable. The stomach is distended with food and fluid residual. An old splenic calcified granuloma is redemonstrated and is interval stable. IMPRESSION: 1. Normal CT angiogram of the chest shows no evidence of any acute or chronic thromboembolic phenomenon in the pulmonary vasculature. 2. No arterial dissection or aneurysms are noted. 3. The stomach is distended with food and fluid residual. 4. Interval resolution of the prior diffuse ground-glass attenuation of the lung gil, now localized to the basal lungs only, which may currently represent the effect of gravity and circulation. 5. Clinical correlation is advised. Electronically signed by Moses Mack 03-28-2025 02:46 AM
[2025-03-28] MEDS: NSS + 20MEQ KCL 20 MEQ/1,000 ML BAG IV ONE (03:43)
[2025-03-28 04:06] VITALS: RESP 18
[2025-03-28 04:42] VITALS: TEMP 97.7
[2025-03-28 05:57] LABS: Hematocrit (blood only) 37.7 % (42.0-52.0); Hemoglobin 13.3 g/dl (14.0-18.0); Immature Granulocytes # (auto) 0.01 K/uL (0.01-0.20); Immature Granulocytes % (auto) 0.1 %; Mean Corpuscular Hemoglobin 30.9 pg (25.0-34.0); Mean Corpuscular Volume 87.7 fL (80.0-100.0); Platelet Count 223 K/uL (130-400); RDW Standard Deviation 41.1 fL (36.4-46.3); Red Blood Count 4.30 M/uL (4.70-6.10); White Blood Count 7.12 K/ul (4.8-10.8)
[2025-03-28 06:17] LABS: Anion Gap 7.0 (3-11); Blood Urea Nitrogen 12.0 mg/dl (6-23); Calcium 8.4 mg/dl (8.6-10.3); Carbon Dioxide 24.0 mmol/L (21-32); Chloride 105.0 mmol/L (98-107); Creatinine Clr Calc Pharmacy 106.3 ml/min; Glucose 120.0 mg/dl (70-99(Fasting)); Potassium 3.9 mmol/L (3.5-5.1); Sodium 136.0 mmol/L (136-145)
[2025-03-28 07:19] LABS: Hemoglobin A1C 5.2 % (4.5-5.6)
--- NOTE | 2025-03-28 08:04 | Hospitalist Progress Note ---
Date of Service March 28, 2025 Assessment & Plan (1) SOB (shortness of breath): Plan: Rhinoviral bronchitis Dehydration Hypothermia likely due to Infection/exposure to cold --Chest CTA:Normal CT angiogram of the chest shows no evidence of any acute or chronic thromboembolic phenomenon in the pulmonary vasculature. No arterial dissection or aneurysms are noted. The stomach is distended with food and fluid residual. Interval resolution of the prior diffuse ground-glass attenuation of the lung gil, now localized to the basal lungs only, which may currently represent the effect of gravity and circulation. --CT Head:There is no evidence of established infarction, intracranial or extracranial hemorrhage. -- Respiratory BioFire positive for rhinovirus --Blood cultures pending --Normal TSH, random cortisol, procalcitonin Received IV fluids Saturating well on room air Antitussives as needed Hypothermia resolved Plan to be discharged home today Chronic anemia H/O MGUS Hemoglobin at baseline Monitor Other chronic conditions: ADHD Mood disorder Past tobacco abuse per record Continue home medications as needed DVT Px: Lovenox SQ CODE STATUS Full code Disposition Home Admission and Anticipated Discharge Date Admission Date: March 28, 2025 Subjective Patient is seen and examined at bedside States feeling well today Hypothermia resolved Denies any cough, dyspnea, chest pain, nausea, vomiting, abdominal pain Eager to get discharged Family at bedside Saturating well on room air Review of Systems Review of Systems: All systems reviewed & are unremarkable except as noted in Subjective Physical Exam Physical Exam: Physical Exam: Vitals signs as noted above General Appearance:Moderately built and nourished, no apparent distress Head: normocephalic, Atraumatic Eyes: normal inspection, EOMI Neck: supple, Trachea midline Respiratory/Chest: Decreased breath sounds, CTA, No accessory muscle use Cardiovascular: S1, S2, No murmur Abdomen/GI:Soft, Non tender, Bowel sounds present Extremities/Musculoskeletal:normal inspection, no edema Neurologic/Psych:AAOX3, grossly no focal neurological deficits Skin: normal color, warm Results & Data Results & Data Vital Signs (Past 12 Hours) Vital Signs Temp Pulse Pulse Resp BP BP Pulse Ox 03/28/25 07:12 61 03/28/25 06:00 61 18 130/67 100 03/28/25 04:41 36.5 C 03/28/25 04:00 61 18 120/56 L 98 03/28/25 03:38 36.4 C L 65 17 109/62 95 10/21/25 03:04 36.6 C 03/28/25 03:03 69 20 110/54 L 95 03/28/25 02:39 73 16 123/60 98 03/28/25 02:00 72 19 122/62 96 03/28/25 01:50 35.9 C L 03/28/25 01:33 63 21 126/56 L 97 03/28/25 00:47 35.3 C L 03/28/25 00:30 59 L 16 121/65 100 03/28/25 00:21 61 16 96 03/28/25 00:14 35.6 C L 03/27/25 23:48 55 L 100 03/27/25 23:45 59 L 03/27/25 23:27 60 13 95 03/27/25 23:00 35.3 C L 03/27/25 22:55 98 03/27/25 22:19 98 03/27/25 22:19 58 L 16 98 03/27/25 22:19 58 L 16 98 03/27/25 22:19 35.3 C L 58 L 16 136/76 98 O2 Del Method 03/28/25 07:12 03/28/25 06:00 Room Air 03/28/25 04:41 03/28/25 04:00 Room Air 03/28/25 03:38 Room Air 03/28/25 03:04 03/28/25 03:03 Room Air 03/28/25 02:39 Room Air 03/28/25 02:00 Room Air 03/28/25 01:50 03/28/25 01:33 Room Air 03/28/25 00:47 03/28/25 00:30 Room Air 03/28/25 00:21 Room Air 03/28/25 00:14 03/27/25 23:48 Room Air 03/27/25 23:45 03/27/25 23:27 Room Air 03/27/25 23:00 03/27/25 22:55 Room Air 03/27/25 22:19 Room Air 03/27/25 22:19 Room Air 03/27/25 22:19 Room Air 03/27/25 22:19 Room Air Laboratory Results Short CBC 03/27/25 03/28/25 Range/Units 22:18 05:05 WBC 9.71 7.12 (4.8-10.8) K/ul Hgb 13.5 L 13.3 L (14.0-18.0) g/dl Hct 39.1 L 37.7 L (42.0-52.0) % Plt Count 229 223 (130-400) K/uL BMP 03/27/25 03/28/25 22:18 05:05 Sodium 134 L 136 Potassium 3.6 3.9 Chloride 99 105 Carbon Dioxide 26 24 BUN 16 12 Creatinine 1.05 0.95 Glucose 128 H 120 H Calcium 9.0 8.4 L Liver Function 03/27/25 03/28/25 Range/Units 22:18 00:08 Total Bilirubin 0.6 (0.2-1.0) mg/dl Direct Bilirubin TNP 0.1 AST 32 (13-39) U/L ALT 25 (7-52) U/L Alkaline Phosphatase 59 (34-104) U/L Albumin 4.0 (3.4-5.0) gm/dl Urine 03/27/25 Range/Units 23:41 Urine Color Yellow Urine Appearance Clear (Clear) Urine pH 7.0 (4.5-7.5) Ur Specific [place] 1.020 (1.000-1.030) Urine Protein Negative (Negative) Urine Glucose (UA) Negative (Negative)
[2025-03-28 08:58] VITALS: BP 109/64; PULSE 59; O2SAT 97
[2025-03-28] MEDS ORDERED: ENOXAPARIN INJ 40 MG/0.4 ML SYR SQ SCH (09:00)
--- NOTE | 2025-03-28 12:28 | Discharge Summary ---
Date of Service March 28, 2025 Admission HPI Per Admitting Provider History obtained from patient and records. Medical history significant for chronic anemia (baseline hemoglobin of 13), MGUS, ADHD, mood disorder, past tobacco abuse. Patient felt sick after a day of work yesterday. Cough symptoms productive of clear sputum. 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 Transient chest pain, SOB associated with nausea, emesis, dizziness symptoms. Generalized weakness. No syncope. Patient markedly hypothermic upon arrival at the ER. Medical History as above Surgical History : Back surgery Family History : Lung cancer, heart disease, stroke Personal/Social history : Past tobacco abuse, occasional EtOH intake, chiropractor Admission Exam Per Admitting Provider GENERAL: Comfortable, obese, pleasant, no respiratory distress, lying on the left lateral decubitus position SKIN: Normal color, cool HEENT: [place] palpebral conjunctivae, no ptosis, dry buccal mucosa NECK : Supple, no tenderness CHEST : Decreased breath sounds, no tenderness HEART : RRR, no obvious murmurs ABDOMEN: Some distention, nontender EXTREMITIES : No LE swelling/tenderness, palpable pulses, no other conspicuous deformities noted NEUROLOGIC : Coherent, no facial asymmetry, gait and stance not assessed Principal Diagnosis Rhinovirus infection Hypothermia Discharge Data Allergies Allergy/AdvReac Type Severity Reaction Status Date / Time codeine Allergy Severe Unknown Verified 03/28/25 02:55 Procedures Performed Laboratory Results WBC 7.12 K/ul (4.8-10.8) 03/28/25 05:05 RBC 4.30 M/uL (4.70-6.10) L 03/28/25 05:05 Hgb 13.3 g/dl (14.0-18.0) L 03/28/25 05:05 Hct 37.7 % (42.0-52.0) L 03/28/25 05:05 MCV 87.7 fL (80.0-100.0) 03/28/25 05:05 MCH 30.9 pg (25.0-34.0) 03/28/25 05:05 MCHC 35.3 g/dL (32.0-36.0) 03/28/25 05:05 RDW Std Deviation 41.1 fL (36.4-46.3) 03/28/25 05:05 RDW Coeff of Reginald 12.7 % (11.5-14.5) 03/28/25 05:05 Plt Count 223 K/uL (130-400) 03/28/25 05:05 MPV 9.9 fL (9.4-12.4) 03/28/25 05:05 Immature Gran % (Auto) 0.1 % 03/28/25 05:05 Neut % (Auto) 79.7 % 03/28/25 05:05 Lymph % (Auto) 12.9 % 03/28/25 05:05 [place] % (Auto) 7.2 % 03/28/25 05:05 Eos % (Auto) 0.0 % 03/28/25 05:05 Baso % (Auto) 0.1 % 03/28/25 05:05 Neut # (Auto) 5.67 K/uL (1.40-6.50) 03/28/25 05:05 Lymph # (Auto) 0.92 K/uL (1.20-3.40) L 03/28/25 05:05 [place] # (Auto) 0.51 K/uL (0.11-0.59) 03/28/25 05:05 Eos # (Auto) 0.00 K/uL (0.00-0.50) 03/28/25 05:05 Baso # (Auto) 0.01 K/uL (0.00-0.20) 03/28/25 05:05 Immature Gran # (Auto) 0.01 K/uL (0.01-0.20) 03/28/25 05:05 Sodium 136 mmol/L (136-145) 03/28/25 05:05 Potassium 3.9 mmol/L (3.5-5.1) 03/28/25 05:05 Chloride 105 mmol/L (98-107) 03/28/25 05:05 Carbon Dioxide 24 mmol/L (21-32) 03/28/25 05:05 Anion Gap 7 (3-11) 03/28/25 05:05 BUN 12 mg/dl (6-23) 03/28/25 05:05 Creatinine 0.95 mg/dl (0.6-1.4) 03/28/25 05:05 Est Cr Clr Drug Dosing 106.3 ml/min 03/28/25 05:05 eGFR 89.38 03/28/25 05:05 BUN/Creatinine Ratio 12.6 (10-20) 03/28/25 05:05 Glucose 120 mg/dl (70-99(Fasting)) H 03/28/25 05:05 Estimat Average Glucose 103 mg/dl 03/28/25 05:05 Hemoglobin A1c 5.2 % (4.5-5.6) 03/28/25 05:05 Lactate 2.0 mmol/L (0.4-2.0) 03/28/25 00:08 Calcium 8.4 mg/dl (8.6-10.3) L 03/28/25 05:05 Magnesium 2.1 mg/dl (1.7-2.4) 03/27/25 22:18 Total Bilirubin 0.6 mg/dl (0.2-1.0) 03/27/25 22:18 Direct Bilirubin 0.1 mg/dl (0-0.2) 03/28/25 00:08 AST 32 U/L (13-39) 03/27/25 22:18 ALT 25 U/L (7-52) 03/27/25 22:18 Alkaline Phosphatase 59 U/L (34-104) 03/27/25 22:18 Troponin I High Sens 4.2 pg/ml (0-20) 03/27/25 22:18 Total Protein 7.4 gm/dl (6.0-8.3) 03/27/25 22:18 Albumin 4.0 gm/dl (3.4-5.0) 03/27/25 22:18 Lipase 17 U/L (11-82) 03/27/25 22:18 Procalcitonin < 0.02 ng/ml (0-0.5) 03/27/25 22:18 TSH 2.868 uIu/ml (0.300-4.500) 03/28/25 00:08 Random Cortisol 23.17 mcg/dl 03/28/25 00:08 Urine Color Yellow 03/27/25 23:41 Urine Appearance Clear (Clear) 03/27/25 23:41 Urine pH 7.0 (4.5-7.5) 03/27/25 23:41 Ur Specific [place] 1.020 (1.000-1.030) 03/27/25 23:41 Urine Protein Negative (Negative) 03/27/25 23:41 Urine Glucose (UA) Negative (Negative) 03/27/25 23:41 Urine Ketones 2+ (Negative) H 03/27/25 23:41 Urine Blood Negative (Negative) 03/27/25 23:41 Urine Nitrite Negative (Negative) 03/27/25 23:41 Urine Bilirubin Negative (Negative) 03/27/25 23:41 Urine Urobilinogen Negative (Negative) 03/27/25 23:41 Ur Leukocyte Esterase Negative (Negative) 03/27/25:41 Urine Comment 03/27/25 23:41 Nasal Screen MRSA (PCR) Negative (Negative) 03/27/25 23:21 Adenovirus (PCR) Not Detected (NotDetected) 03/27/25 23:39 B. pertussis DNA (PCR) Not Detected (NotDetected) 03/27/25 23:39 B.parapertussis DNA PCR Not Detected (NotDetected) 03/27/25 23:39 Lyme Disease Screen Negative (Negative) 03/27/25 22:18 C. pneumoniae DNA (PCR) Not Detected (NotDetected) 03/27/25 23:39 Coronavirus OC43 (PCR) Not Detected (NotDetected) 03/27/25 23:39 Coronavirus HKU1 (PCR) Not Detected (NotDetected) 03/27/25 23:39 Coronavirus 229E (PCR) Not Detected (NotDetected) 03/27/25 23:39 SARS-CoV-2 (PCR) Not Detected (NotDetected) 03/27/25 23:39 Coronavirus NL63 (PCR) Not Detected (NotDetected) 03/27/25 23:39 Human Metapneumovir PCR Not Detected (NotDetected) 03/27/25 23:39 Influenza Type A (PCR) Not Detected (NotDetected) 03/27/25 23:39 Influenza Type B (PCR) Not Detected (NotDetected) 03/27/25 23:39 M. pneumoniae (PCR) Not Detected (NotDetected) 03/27/25 23:39 Parainfluenza 1 (PCR) Not Detected (NotDetected) 03/27/25 23:39 Parainfluenza 2 (PCR) Not Detected (NotDetected) 03/27/25 23:39 Parainfluenza 3 (PCR) Not Detected (NotDetected) 03/27/25 23:39 Parainfluenza 4 (PCR) Not Detected (NotDetected) 03/27/25 23:39 RSV (PCR) Not Detected (NotDetected) 03/27/25 23:39 Entero/Rhino (PCR) DETECTED (NotDetected) A 03/27/25 23:39 Impressions Chest X-Ray 03/27/25 22:31 Exam(s): XR CXR 1 VIEW EXAM: XR Chest, 1 View CLINICAL HISTORY: Reason for exam: Sepsis. TECHNIQUE: Frontal view of the chest. COMPARISON: 10/23/2024 FINDINGS: Lungs: Compared to prior, increased density of the left lung base. Right lung is clear. Pleural space: No significant pleural effusion. No pneumothorax. Heart: No cardiomegaly or pulmonary vascular congestion. Bones/joints: No acute fracture. No dislocation. IMPRESSION: Compared to prior, increased density of the left lung base. Appearance is favored atelectasis, but infiltrate is not excluded. Electronically signed by: Tony River M.D. 03/27/25 23:35 PM Abdomen/Pelvis CT 03/27/25 22:54 EXAM: CT abd pelvis IV con only CLINICAL HISTORY: nausea, hypothermic TECHNIQUE: Contrast-enhanced CT of the abdomen and pelvis was performed, with the following protocol: axial images were obtained, and coronal and sagittal reconstructions were performed. 118 mL of Optiray 320 Intravenous contrast was administered. One of the following dose reduction techniques was utilized for this exam: automated exposure control, adjustment of the mA and/or kV according to patient size, and use of iterative reconstruction. COMPARISON: None. FINDINGS: Abdomen: Liver: The liver is normal in size, shape, and density. No focal lesions, cysts, or masses are identified. The hepatic vasculature and biliary ducts are unremarkable. Gallbladder and Biliary System: The gallbladder is normal in size and shape. No wall thickening, pericholecystic fluid, or gallstones are identified. The common bile duct is normal in caliber without dilation. Pancreas: The pancreatic head, body, and tail are visualized and appear normal in size and density. No pancreatic masses or calcifications are noted. The pancreatic duct is not dilated. Spleen: The spleen is normal in size, shape, and density. No splenic lesions or masses are identified. Appendix: The appendix is normal in size without smión-appendiceal fat stranding, and without an appendicolith. No evidence of appendiceal abscess or perforation. Kidneys and Adrenal Glands: Both kidneys are normal in size, shape, and position. Cortical thickness is within normal limits. No sizable renal calculi or hydronephrosis are identified. A 4mm cortical cyst in the interpolar region of right kidney. The adrenal glands are unremarkable, with no evidence of masses or hyperplasia. Pelvis: Urinary Bladder: The urinary bladder is normal in contour and wall thickness. No intraluminal lesions are identified. Prostate: The prostate is enlarged (93 cc). Seminal Vesicles: The seminal vesicles are normal in size and appearance. No abnormalities are noted. Peritoneal and Retroperitoneal Structures: No free fluid or abnormal fluid collections are identified within the abdomen or pelvis. No lymphadenopathy is noted. Mild atheromatous calcification of the examined vessels is present. Bowel: Mild diverticulosis of the colon is present. The visualized bowel loops are normal in caliber and appearance. No evidence of bowel obstruction or wall thickening is seen. Bones and Soft Tissues: Bilateral hip osteoarthritis is present. Spondylodegenerative changes of the lumbosacral spine are noted. No fractures or abnormal masses are identified. Proximal hamstring calcific tendinosis is present bilaterally. Basal chest cuts show mild dependent atelectasis. IMPRESSION: 1. Contrast-enhanced CT of the abdomen and pelvis demonstrates no acute intra-abdominal pathology. 2. Prostatomegaly. Electronically signed by Moses Mack 03-28-2025 02:29 AM Chest CTA 03/27/25 22:54 EXAM: CT angio chest PE protocol CLINICAL HISTORY: Chest pain, nausea, hypothermic, r/o PE TECHNIQUE: CT angiography of the chest was performed with and without intravenous contrast using the following protocol: Axial images were acquired and reconstructed to coronal and sagittal images. Non-contrast images were initially obtained, followed by contrast-enhanced images in arterial and venous phases. Intravenous contrast [name and volume] was administered using automated injection techniques. Bolus tracking was employed to optimize arterial phase imaging. One of the following 3D techniques was utilized: Maximum Intensity Pixel (MIP), 3D reconstructed images, volume rendered images, or surface shaded rendering. One of the following dose reduction techniques was utilized for this exam: automated exposure control, adjustment of the mA and/or kV according to patient size, and use of iterative reconstruction. COMPARISON: Comparison is made with 12/26/2024. FINDINGS: Aorta and Great Vessels: Ascending aorta: The ascending aorta is normal in caliber, with no aneurysm, dissection, or significant atherosclerosis. Aortic arch: The aortic arch is normal in caliber, with no aneurysm, dissection, or significant atherosclerosis. Descending aorta: The descending aorta is normal in caliber, with no aneurysm, dissection, or significant atherosclerosis. Pulmonary arteries: The main pulmonary artery and its branches are patent. There is no evidence of pulmonary embolism or significant stenosis. Heart: Cardiac chambers: The cardiac chambers are normal in size. There is no evidence of cardiomegaly. Pericardium: There is no pericardial effusion or thickening. Lungs and Pleura: The lungs are clear, without evidence of consolidation, collapse, or focal lesions. There is interval resolution of the prior diffuse ground-glass attenuation of the lung gil, now localized to the basal lungs only, which may currently represent the effect of gravity and circulation. There is no pleural effusion or pleural thickening. Mediastinum: There is no mediastinal mass or abnormal lymphadenopathy. The trachea and central bronchi have a normal appearance. Hilar Structures: The hilar structures are normal, without enlargement. Old, calcified left hilar lymph nodes are seen and are interval stable. A few calcified lymph nodes are noted in the subcarinal region and are interval stable. Chest Wall: There are no mass lesions or abnormalities in the chest wall. Vascular Structures: Superior vena cava: The superior vena cava is patent without evidence of stenosis or thrombus. Bones and Soft Tissues: Degenerative changes are seen in the spine. There are no fractures, lytic, or blastic lesions of the visualized bony structures. The soft tissues are unremarkable. The stomach is distended with food and fluid residual. An old splenic calcified granuloma is redemonstrated and is interval stable. IMPRESSION: 1. Normal CT angiogram of the chest shows no evidence of any acute or chronic thromboembolic phenomenon in the pulmonary vasculature. 2. No arterial dissection or aneurysms are noted. 3. The stomach is distended with food and fluid residual. 4. Interval resolution of the prior diffuse ground-glass attenuation of the lung gil, now localized to the basal lungs only, which may currently represent the effect of gravity and circulation. 5. Clinical correlation is advised. Electronically signed by Moses Mack 03-28-2025 02:[address] 03/27/25 22:54 EXAM: CT head/brain wo con CLINICAL HISTORY: dizziness, hypothermic, nausea TECHNIQUE: Axial non-contrast CT scan of the brain was performed from the skull base to the high parietal region. One of the following dose reduction techniques was utilized for this examination: automated exposure control, adjustment of the mA and/or kV according to patient size, or use of iterative reconstruction. COMPARISON: 10/27/2022 FINDINGS: Brain Parenchyma: Normal attenuation of the cerebral hemispheres, cerebellum, and brainstem. There is no evidence of acute infarct, hemorrhage, or mass effect. There are no abnormal areas of hypoattenuation or hyperattenuation. Ventricular System: The ventricles are normal in size and configuration. There is no evidence of hydrocephalus or ventricular enlargement. Subarachnoid Spaces: The sulci and cisterns are normal. There is no evidence of subarachnoid hemorrhage or extra-axial fluid collections. Cerebellum and Brainstem: No masses, lesions, or areas of abnormal density are identified. Orbits: The globes, optic nerves, and extraocular muscles demonstrate normal appearance. There is no evidence of orbital masses or abnormal density. Sinuses: The paranasal sinuses are clear. There is no evidence of sinusitis or mucosal thickening. Mastoid Air Cells: The mastoid air cells are clear. There is no evidence of mastoiditis. Skull: The skull demonstrates normal morphology. IMPRESSION: There is no evidence of established infarction, intracranial or extracranial hemorrhage. Early changes of stroke may not be detected on a CT scan. If there is strong clinical suspicion for stroke, MRI with diffusion-weighted imaging is suggested. There are no significant interval changes from the previous study. Electronically signed by Moses Mack 03-28-2025 02:37 AM Ordered Studies 03/27/25 22:54 CT abd pelvis IV con only Stat CT angio chest PE protocol Stat CT head/brain wo con Stat Hospital Course (1) SOB (shortness of breath): Rhinoviral bronchitis Dehydration Hypothermia likely due to Infection/exposure to cold --Chest CTA:Normal CT angiogram of the chest shows no evidence of any acute or chronic thromboembolic phenomenon in the pulmonary vasculature. No arterial dissection or aneurysms are noted. The stomach is distended with food and fluid residual. Interval resolution of the prior diffuse ground-glass attenuation of the lung gil, now localized to the basal lungs only, which may currently represent the effect of gravity and circulation. --CT Head:There is no evidence of established infarction, intracranial or extracranial hemorrhage. -- Respiratory BioFire positive for rhinovirus --Blood cultures pending --Normal TSH, random cortisol, procalcitonin Received IV fluids Saturating well on room air Antitussives as needed Hypothermia resolved Plan to be discharged home today Chronic anemia H/O MGUS Hemoglobin at baseline Monitor Other chronic conditions: ADHD Mood disorder Past tobacco abuse per record Continue home medications as needed DVT Px: Lovenox SQ CODE STATUS Full code Disposition Home Total Time Total Time Spent Total Time Spent (In Minutes): 51 minutes Discharge Plan Discharge Items Patient Disposition: Home - Self-Care Reason For Visit: SOB Discharge Diagnosis: Rhinovirus infection Hypothermia Condition on Discharge: Serious Activity: Per Instructions section Exercise/Sports: Wait until after follow-up appointment Non-emergency contact: Primary Care Provider Call non-emergency contact if: you have any medication questions, your symptoms worsen, your pain is concerning for you and you have a fever Follow-up/Referrals: Svetlana Hutson PA-C [Primary Care Provider] - (The DC will call you with a follow up appointment.) Diet: Heart Healthy Addtl Attending Provider Instructions: -- Follow-up with your primary care physician in 1 week -- Keep yourself hydrated to minimize dehydration --Your blood cultures are pending at the time of discharge. Follow-up with your physician for results. Seek immediate medical attention if your symptoms reoccur or worsen Please review medication list provided on discharge for any medication changes as instructed. Please call if you have any questions or problems. You can reach a [facility] hospitalist on duty at [facility] 24 hours a day by calling [phone] Pending Studies at Discharge: Yes Studies:: Blood cultures Stand-Alone Forms: My [facility], Smoking Cessation Medications and DC Order Prescriptions: Continued dextroamphetamine-amphetamine 20 mg tablet 20 mg PO BID PRN (Reason: as needed) Patient Comments: 12/26- [facility] 1.7 mg/0.75 mL Pen Injector 1.7 mg SUBCUT Q7D acetaminophen 325 mg Tablet 325 mg PO DAILY PRN (Reason: Pain) omega-3 fatty acids 1,000 mg Capsule 2,000 mg PO DAILY Discharge Orders: Discharge Order (Routine); Ordered 03/28/25 Ordered By: Gareth Miller Admission Data Admit Date/Time: 03/28/25 02:14 Attending Provider: Gareth Miller Admit Provider: Renny Kellogg Primary Care Provider: Svetlana Hutson Other Interventions: Discharge Summary Assessment (RN) Last Done: 03/28/25 09:26
[2025-03-28 21:16] LABS: A calco-baum cmplx NotReported Not Detected (NotDetected); Bact fragilis Not Reported Not Detected (NotDetected); Blood Culture Id Panel PCR Panel Negative (NotDetected); C auris Not Reported Not Detected (NotDetected); Calbicans Not Reported Not Detected (NotDetected); Candida glabrata Not Reported Not Detected (NotDetected); Candida krusei Not Reported Not Detected (NotDetected); Cneoformans/gatti Not Reported Not Detected (NotDetected); Cparapsilosis Not Reported Not Detected (NotDetected); Ctropicalis Not Reported Not Detected (NotDetected); E cloacae compx Not Reported Not Detected (NotDetected); Efaecalis Not Reported Not Detected (NotDetected); Efaecium Not Reported Not Detected (NotDetected); Enterobacterales Not Reported Not Detected (NotDetected); Escherichia coli Not Reported Not Detected (NotDetected); H influenzae Not Reported Not Detected (NotDetected); K aerogenes Not Reported Not Detected (NotDetected); Koxytoca Not Reported Not Detected (NotDetected); Kpneumoniae grp Not Reported Not Detected (NotDetected); Lmonocyt Not Reported Not Detected (NotDetected); N meningitidis Not Reported Not Detected (NotDetected); P aeruginosa Not Reported Not Detected (NotDetected); Proteus spp Not Reported Not Detected (NotDetected); Salmonella spp Not Reported Not Detected (NotDetected); Staph lugdunensis Not Reported Not Detected (NotDetected); Staph spp. Not Reported Not Detected (NotDetected); Staphaureus Not Reported Not Detected (NotDetected); Staphepi Not Reported Not Detected (NotDetected); Stenmaltophilia Not Reported Not Detected (NotDetected); Strep agal(GrpB) Not Reported Not Detected (NotDetected); Strep pneum Not Reported Not Detected (NotDetected); Strep pyog (GrpA) Not Reported Not Detected (NotDetected); Strep spp Not Reported Not Detected (NotDetected)
--- NOTE | 2025-03-29 00:32 | Communication Note ---
Date of Service: March 28, 2025 Notified by ED charge machine operator of abnormal blood CS result. Patient discharged earlier today. Gram-positive bacilli in 1 bottle AP Gram-positive bacilli bacteremia Likely contaminant Will relay to discharging provider (Dr. Miller) in a.m. for disposition.
--- NOTE | 2025-03-31 06:04 | Electrocardiogram Report ---
Test Reason : Blood Pressure : */* mmHG Vent. Rate : 58 BPM Atrial Rate : 58 BPM P-R Int : 182 ms QRS Dur : 104 ms QT Int : 440 ms P-R-T Axes : 54 -5 53 degrees QTcB Int : 431 ms Sinus bradycardia Minimal voltage criteria for LVH, may be normal variant ( R in aVL ) Borderline ECG When compared with ECG of 26-Dec-2024 16:29, No significant change was found Confirmed by Ponce Woodward ([id number]) on 03/31/2025 6:04:15 AM Referred By: REFERRED SELF Confirmed By: Ponce Woodward
== END 2025-03-28 09:36 | disposition home or self-care (01) ==
LOC: ED 22:11 → EDINP 22:11